=== PATIENT | female | born 1990 | race Caucasian/White ===

== ENCOUNTER 2017-02-28 02:22 | Observation (INO) | payer OTHER ==
[~2017-02-28] VITALS: Ht 170.2 cm; Wt 152.6 kg
[2017-02-28] VITALS (15 sets, daily range): BP systolic 105–144; BP diastolic 53–94; PULSE 61–84; RESP 16–23; O2SAT 93–100
--- NOTE | 2017-02-28 02:41 | ED.REPORT ---
HPI-Abd Pain F Under 40 Date of Service Feb 28, 2017 ED Provider: History of Present Illness: Healthy 26-year-old female presents with rather significant right upper quadrant pain rating to her back. Associated symptoms include fever. Pain woke her up from sleep tonight. She has never had anything like this in the past. Nursing Notes Stated Complaint: UPPER ABDOMEN/BACK PAIN Chief Complaint: Female Abdominal Pain Nursing Notes Reviewed: Yes Allergies: Uncoded Allergies: STEROIDS (Allergy, Intermediate, HIVES, 02/28/17) General Time Seen by MD: 02:41 Chief Complaint Abdominal pain Upper abdominal pain. Hx Obtained From: Patient Arrived By: Walk-in Sudden in Onset?: Yes Onset Occurred: Just prior to arrival Context of Onset: Other (woke her from sleep) Symptom Duration: Since onset Progression since Onset: Gradually worsening Location: : RUQ Quality: Painful Severity: Current: Moderate Severity: Maximum: Moderate Associated with: Reports: Fever Pertinent Negative: Pt denies other symptoms Pertinent Negative: Exacerbated by nothing, Relieved by nothing Recent Healthcare: Recent doctor visit (she gave to a term 4 weeks ago) Similar Sx Previous: No Risk Factors Ectopic Risk Stratification Risk factors reviewed CAD Risk Stratification No Amphetamine, No Cocaine, No Diabetes mellitus, No Family history, No Hyperlipidemia, No Hypertension, No Known CAD, No Smoking Risk factors reviewed TAD Risk Stratification No 1st degree relative, No Aortic valve disease Risk factors reviewed Past Medical History Past Medical History Denies: Coronary artery disease, Peptic ulcer disease Denies: Gallbladder disease, Renal failure Past Surgical History Denies: Cholecystectomy Smoking History Never Smoker Social History Alcohol Use: Denies alcohol use Drug Use: Denies drug use Ambulatory Status Independent Review of Systems Basic Review of Systems Eyes: Vision NL, No discharge ENT: Hearing NL, No pain, No pharyngeal pain Hematologic: No bleeding, No bruising Endocrine: No cold intolerance, No heat intolerance Skin: No bruising, No rash Allergy / Immune: No allergy Neurologic: NL mental status, No weakness, No numbness Psychiatric: Normal thought content Respiratory: Denies: Dyspnea on exertion GI: Reports: Abdominal pain, Denies: Diarrhea, Vomiting Female: Denies: Dysuria, Flank pain Musculoskeletal: Reports: Back pain Physical Exam Initial Vital Signs Vital Signs (First) Date Time Temp Pulse Resp B/P Pulse Ox O2 Delivery O2 Flow Rate FiO2 02/28/17 02:24 36.5 72 16 139/94 97 Room Air Head / Eyes: Atraumatic, Normocephalic ENT: Mucous membranes moist, Conjunctiva normal Neck: Full range of motion Lymphatic: No lymphadenopathy Extremities: Vascular intact, Neuro intact, No swelling, No tenderness Skin: Warm, Dry, No cyanosis Neurologic: Alert, Nonfocal Psychiatric: Mood/affect normal, Behavior normal, Normal thought content Abdomen: Soft Tenderness/Guarding/Rebound: Positive: Smith's sign positive, Tender RUQ... ( Moderate) Re-Eval/Medical Decision Med Decision/Clinical Course Subjective fever with right upper quadrant abdominal pain rating to the back. She is tender in the right upper quadrant. Cholecystitis is highest on the differential. We will check labs, urine and EKG. Care nurse of Dr. Juan Cameron at 3 AM. He will follow-up in the labs and make final disposition. Discharge & Departure Shift Change Sign-Out Patient Care Transferred: Yes Discussed Complaint(s): Yes Laboratory Evaluation: Ordered, not yet done Imaging Studies: Ordered, not yet done Response to Therapy: Improved Primary Impression: Right upper quadrant abdominal pain Isidoro Biggs DO Feb 28, 2017 02:41
[2017-02-28] MEDS ORDERED: 0.9% Sodium Chloride 1,000 ML IV ONE (02:46)
[2017-02-28] MEDS ORDERED: HYDROmorphone 0.5 mg/0.5 mL iSecure Syringe IVPUSH PRN (02:50)
[2017-02-28] MEDS ORDERED: Ondansetron 2 mg/mL 2 mL Inj IVPUSH PRN ×2 (02:50→13:30)
[2017-02-28 03:28] LABS: BASOPHILS % (AUTO) 0.2 % (0-3); EOSINOPHILS % (AUTO) 2.5 % (0-5); MONOCYTES % (AUTO) 8.2 % (4-12); Mean Corpuscular Hemoglobin 29.3 pg (27.0-35.0); Mean Corpuscular Volume 88.4 fL (81-100); NEUTROPHILS % (AUTO) 67.8 % (40-74); Platelet Count 250 bil/L (150-400)
[2017-02-28 03:44] LABS: APPEARANCE,URINE CLOUDY (CLEAR,HAZY); COLOR,URINE YELLOW (YELLOW)
[2017-02-28 03:45] LABS: OCCULT BLOOD,URINE NEGATIVE (NEGATIVE)
[2017-02-28] MEDS ORDERED: EPHEDrine/NS 5 mg/mL 5 mL Syringe ONE (08:15)
[2017-02-28] MEDS ORDERED: Rocuronium 10 mg/mL 5 mL Inj ONE (08:15)
[2017-02-28] MEDS ORDERED: Ondansetron 2 mg/mL 2 mL Inj ONE (08:15)
[2017-02-28] MEDS ORDERED: Glycopyrrolate 0.2 MG/ML 1mL Inj ONE (08:15)
[2017-02-28] MEDS ORDERED: Remifentanil 1 mg/3 mL Inj ONE (08:15)
[2017-02-28] MEDS ORDERED: Propofol 10,000 mCg/mL 20 mL Inj ONE (08:15)
[2017-02-28] MEDS ORDERED: Neostigmine 1 mg/mL 10 mL Inj ONE (08:15)
[2017-02-28] MEDS ORDERED: MetoCLOpramide 5 mg/mL 2 mL Inj ONE (08:15)
[2017-02-28] MEDS ORDERED: fentaNYL-PF 50 mCg/mL 2 mL Inj ONE (08:15)
[2017-02-28] MEDS ORDERED: RANI-426 PO (09:26)
[2017-02-28] MEDS ORDERED: ACYC400T2 PO (09:43)
[2017-02-28 10:21] LABS: BASOPHILS % (AUTO) 0.1 % (0-3); EOSINOPHILS % (AUTO) 2.2 % (0-5); MONOCYTES % (AUTO) 8.6 % (4-12); Mean Corpuscular Hemoglobin 29.5 pg (27.0-35.0); Mean Corpuscular Volume 87.8 fL (81-100); NEUTROPHILS % (AUTO) 63.3 % (40-74); Platelet Count 218 bil/L (150-400)
--- NOTE | 2017-02-28 10:41 | PCM.HPMED ---
Subjective Date of Service Feb 28, 2017 Primary Provider: Admitting Physician: Cherelle Mooney MD Primary Care Physician: Marlin Torres MD Attending Physician: Cherelle Mooney MD Chief Complaint: Abdominal pain History of Present Illness: 26-year-old female with GERD, cold sore on chronic anti-viral tx, recently gave , not on breast-feeding presented with acute onset of back pain around midnight last night. Patient had acute onset severe right upper quadrant pain about a week, which resolved with Tylenol and ibuprofen. Pain traveled to back at that time, lasted for 4hours. Last night, pain was similar to previous episodes, but only on her back. Patient took Tylenol and ibuprofen again however pain persisted, decided to come to the hospital. Patient denied having similar episodes prior to a week ago episode. ROS: no fever, chills, sick contact, travel, chest pain, cough, sputum, SOB, ED vitals were stable, afebrile. labs showed elevated lipase with normal bilirubin, leukocytosis. abd US, MRCP ordered. consulted per ED provider. During the interview, pt denied any abdominal pain, n, v. feels hungry. Review of Systems: Pertinent positives as noted in history of present illness. All other systems were reviewed and are negative Allergies Uncoded Allergies: STEROIDS (Allergy, Intermediate, HIVES, 02/28/17) Home Medications Ranitidine ?Acyclovir every day PMH As described above in history of present illness Surgical History Tonsillectomy Family History Father had stroke and hypertension Social History Hx Alcohol Use: No Hx Substance Use: No Hx Tobacco Use: No Smoking Status: Never Smoker Exam Vital Signs Vital Sign - Last Date Time Temp Pulse Resp B/P Pulse Ox O2 Delivery O2 Flow Rate FiO2 02/28/17 09:35 36.6 61 18 129/82 97 Room Air Intake and Output 02/27/17 02/27/17 02/28/17 Cumulative From/Thru 15:00 23:00 07:00 02/28/17 02:24 - 02/28/17 03:25 Intake Total 999 ml 999 ml Balance 999 ml 999 ml Intake IV Total 999 ml 999 ml Exam Young obese female NAD, comfortably laying down on the bed no JVD, MMM, no LAD RRR, nl s1, s2 no mrg CTAB, no w,c S,ND,NT,normoactive BS+ warm, no edema, pulses 2/2 Lab and Diagnostics Result Diagram: 02/28/17 1012 02/28/17 0320 Assessment & Plan 26-year-old female with GERD, cold sore on chronic anti-viral tx, recently gave , not on breast-feeding presented with acute onset of back pain around midnight last night. Hx suggested also recently episode of biliary colic. labs suggestive of acute pancreatitis. Acute, active RUQ pain, radiating to back, POA, likely due to acute pancreatitis given elevated lipase, hx. Exam and symptoms were unremarkable, suggested stones possibly may have passed already. We will continue supportive treatment for acute pancreatitis -will trend lipase, bilirubin. -LR 150cc/hr -awaits US abd, MRCP -appreciate consult for probable cholecystectomy -morphine iv prn for pain Chronic, stable GERD, continue ranitidine hx of cold sore, resume anti-viral once med rec done dispo:Patient will be admitted with inpatient status with expectation of inpatient therapy for more than 2 midnights diet:NPO for now dvt ppx:SCD Full code Time spent 65 minutes Cherelle Mooney MD Feb 28, 2017 10:41
[2017-02-28] MEDS: Acyclovir 400 mg Tablet PO SCH (11:00)
[2017-02-28] MEDS: 0.9% Sodium Chloride 1,000 ML IV SCH ×3 (11:08→23:15)
--- NOTE | 2017-02-28 12:02 | CONS ---
[address] [address] CONSULTATION REPORT PATIENT: ROSEMARIE GRIMALDO : 1990 MR#: [id number] ADMIT: 02/28/2017 JOB ID: [id number] DATE OF SERVICE: 02/28/2017 CHIEF COMPLAINT: A 26-year-old lady with gallstone pancreatitis seen in consultation at the request of Manoj Cameron MD. HISTORY OF PRESENT ILLNESS: The patient is a 26-year-old lady who had an episode of abdominal and severe back pain a week ago which got better with Tylenol and ibuprofen but last night it did not get better, prompting her to come to the emergency department. Before she could get any medication in the emergency department her pain indeed actually got better. She has had problems with reflux, taking ranitidine as needed before but she has not noted any abdominal complaints before. She is one month right now. OTHER MEDICAL PROBLEMS: 1. Morbid obesity. 2. Gastroesophageal reflux disease. 3. Herpes simplex. PRIOR OPERATIONS: Tonsillectomy. FAMILY HISTORY: Father had a stroke and hypertension. SOCIAL HISTORY: She does not smoke. She is here with her and 1-month-old daughter. REVIEW OF SYSTEMS: Twelve point review of systems negative other than the pertinent positives noted in the history of present illness and other medical problems. INVESTIGATIONS: WBC 6.9, hemoglobin 12.1, platelet count 218. Creatinine 0.69. Lipase at 3 a.m. 2155. AST 76, rest of the liver function studies normal. Ultrasound of the gallbladder. I reviewed it with Josef Wallace in radiology, and it showed gallstones with no evidence of gallbladder wall thickening or cholecystitis. PHYSICAL EXAMINATION: A 26-year-old lady, in no acute distress. BMI 52.7. Temperature 36.6, pulse 62, blood pressure 129/82, saturating 97% on room air. Eyes: Normal pupils, conjunctivae. Ears, nose, and throat: Normal external appearance. Respiratory: Normal effort, clear to auscultation. Cardiovascular: Regular rate and rhythm. Gastrointestinal: Abdomen soft, nontender. Neurologic: No gross deficits, alert, appropriate. Psych: Alert, appropriate. Skin: Normal. Musculoskeletal: Normal strength in extremities. Chest: Breast exam deferred. ASSESSMENT AND PLAN: Gallstone pancreatitis. Discussed the pathophysiology and treatment rationale for gallstone disease and gallstone pancreatitis, and recommended laparoscopic cholecystectomy and cholangiogram prior to discharge from this visit. Given her symptoms are completely resolved now, she would like to have the operation done as soon as possible. We will see what the lipase does on labs this morning which is pending right now and as long as it is trending down, it might be reasonable to proceed with the operation. Discussed the risks, benefits and alternatives, and the patient understands and wants to proceed.
--- NOTE | 2017-02-28 13:08 | NUR ---
TO OR Patient is saline locked. Consent form is signed. Patient transported to the OR via a hospital bed.
[2017-02-28] MEDS ORDERED: Lactated Ringer's 500 ML IV PRN (13:30)
[2017-02-28] MEDS ORDERED: HYDROmorphone 1 mg/mL Inj IVPUSH PRN (13:30)
[2017-02-28] MEDS ORDERED: fentaNYL-PF 50 mCg/mL 2 mL Inj IVPUSH PRN (13:30)
[2017-02-28] MEDS ORDERED: Dexamethasone 4 mg/mL Inj IVPUSH PRN (13:30)
[2017-02-28] MEDS ORDERED: Lactated Ringer's 1,000 ML IV SCH (13:30)
[2017-02-28] MEDS ORDERED: MetoCLOpramide 5 mg/mL 2 mL Inj IVPUSH PRN (13:30)
[2017-02-28] MEDS ORDERED: EPHEDrine Sulfate 50 mg/mL Inj IVPUSH PRN (13:30)
[2017-02-28] MEDS ORDERED: Phenylephrine 10,000 mCg/mL Inj IVPUSH PRN (13:30)
--- NOTE | 2017-02-28 13:30 | PCM.HPANE ---
Patient Data Surgeon Admitting Provider:Cherelle Mooney MD Attending Provider:Cherelle Mooney MD Primary Care Physician:Marlin Torres MD Other Provider: Reason for Visit Gallstones/Pancreatitis GALLSTONES/PANCREATITIS Ht/WT & BMI Height (Feet): 5 Height (Inches): 7.00 Weight (Kilograms): 152.600 Body Mass Index 52.80 Allergies Uncoded Allergies: STEROIDS (Allergy, Intermediate, HIVES, 02/28/17) Past Anesthesia History Anesthesia History: Denies:: Anesthesia Reactions Diabetes History Hx Diabetes?: No MRSA MRSA: No Medications Reported Medications Acyclovir 400 Mg [id number] Mg PO DAILY Ref 0 02/28/17 Ranitidine 75 Mg [id number] Mg PO DAILY Ref 0 02/28/17 History History of ENT Problems?: No HEENT History: Denies:: Abnormal Airway Cataracts Difficult Intubation Dysphagia Glaucoma Hearing Problem Sinus Problem TMJ Denture Type: None Teeth Condition: Within Normal Limits Hx of Heart Problems?: No Cardiovascular History: Denies:: Congestive Heart Failure Hypertension Hx of Respiratory Problem?: No Respiratory History: Denies:: Tuberculosis Hx Neurologic Problems?: No Hx of GI Problems?: Yes Hx of Problems?: No Female Hx: Denies:: Currently (GAVE 1 MONTH AGO) Endometriosis Pelvic Inflammatory Problems with Breasts? Hx Musculoskeletal Problems?: No Hx of Psycho/Social Problems?: No Hx Surgeries?: Yes (TONSILLECTOMY) Hx Any Other Health Problems?: No Other History: Denies:: Hospitalization History Blood Transfusions: Positive for:: Accept Blood Products? Denies:: Blood Transfusions Hx Diabetes: No Hx Alcohol Use: NoHx Substance Use: No Smoking Status: Never Smoker Have You Smoked inLast 12 mo: No Stop/Bang Treated for Sleep Apnea?: No (? PAKO PER PT. ) Do You Have a CPAP Machine?: No S-Snoring: Do You Snore Loudly: Yes T-Tired: feel tired, fatigued: No O-Obsered: Observed not breath: Yes P-Blood Pressure: treated: No B- Body Mass Index > 35 kg/m2: Yes A- Age over 50: No N- Neck Large Circumference: No G- Gender Male: No PAKO Total Score: 4 PAKO Risk Assessment: High Risk, =/>3 Yes PAKO Category 4 OutPt Procedure: Yes Risk Assessment Category Category 1A: Patient has history of documented sleep apnea, and HAS NOT received any narcotic, sedative or anesthesia administration during this stay. Category 1B: Patient has history of documented sleep apnea, and HAS received any narcotic , sedative or anesthesia administration during this stay Category 2: Patient has SUSPECTED Obstructive Sleep Apnea, and HAS received any narcotic , sedative or anesthesia administration during this stay. Category 3: Patient has SUSPECTED Obstructive Sleep Apnea and HAS NOT received narcotic, sedative or anesthesia administration during this stay. Category 4: Outpatient in Procedural Areas with known sleep apnea or who screen positive for High Risk via the STOP/BANG questionnaire. Exam Exam Vital Signs Vital Signs Date Time Temp Pulse Resp B/P Pulse Ox O2 Delivery O2 Flow Rate FiO2 02/28/17 10:36 62 02/28/17 09:35 36.6 61 18 129/82 97 Room Air 02/28/17 07:13 69 16 144/93 98 Room Air 02/28/17 05:08 63 96 Room Air General Appearance: Alert HEENT/AIRWAY: MP 2, Neck Movement (FROM, 3 FB) Lungs: Clear to Auscultation Heart: Regular Rate/Rhythm Meds/Labs/Diagnostics Admission Meds Current Medications Sodium Chloride (Normal Saline) 1,000 ml @ 0 mls/hr Q0M ONCE IV Last administered on 02/28/17 03:25; Start 02/28/17 at 02:46; Stop 02/28/17 at 02:48; Status DC Ketorolac Tromethamine 30 mg 30 mg ONCE ONCE IVPUSH Last administered on 05:07; Start 02/28/17 at 02:50; Stop 02/28/17 at 02:51; Status DC Sodium Chloride (Normal Saline) 1,000 ml @ 150 mls/hr Q6H40M IV Last administered on 02/28/17 11:08; Start 02/28/17 at 09:55 Labs Test 02/28/17 03:20 02/28/17 03:30 02/28/17 10:12 Hold [place] Top Tube Received (Received) Urine Color Yellow (YELLOW) Urine Appearance Cloudy (CLEAR,HAZY) Urine pH 7.0 (5.0-8.0) Urine Specific [place] 1.025 (1.003-1.035) Urine Protein Negativemg/dL (NEG,TRACE) Urine Glucose (UA) Negativemg/dL (NEGATIVE) Urine Ketones Negativemg/dL (NEGATIVE) Urine Occult Blood Negative (NEGATIVE) Urine Nitrite Negative (NEGATIVE) Urine Bilirubin Negative (NEGATIVE) Urine Urobilinogen 1.0mg/dL (NORMAL) Urine Leukocyte Esterase Negative (NEGATIVE) Urine RBC 0-2/hpf (0-2) Urine WBC 6-10/hpf (0-5) Urine Epithelial Cells Many/hpf (NONE-MOD) Urine Crystals None seen (NONE SEEN) Urine Bacteria Moderate/hpf (NONE-FEW) Urine Hyaline Casts None/lpf (NONE) Urine Granular Casts None seen (NONE SEEN) Urine Waxy Casts None seen (NONE SEEN) Urine Red Blood Cell Casts None seen (NONE SEEN) Urine White Blood Cell Casts None seen (NONE SEEN) Urine Mucus Present (None Seen) Urine Trichomonas None seen (NONE SEEN) Urine Yeast None (NONE SEEN) Urinalysis Comment None Urine Culture Reflexed Indicated White Blood Count 6.9th/mm3 (3.8-10.1) Red Blood Count 4.10mil/mm3 (3.90-5.20) Hemoglobin 12.1g/dL (12.0-15.6) Hematocrit 36.0% (35.0-46.0) Mean Corpuscular Volume 87.8fL (81-100) Mean Corpuscular Hemoglobin 29.5pg (27.0-35.0) Mean Corpuscular Hemoglobin Concent 33.6% (32.0-37.0) Red Cell Distribution Width 12.5% (12.3-15.4) Platelet Count 218bil/L (150-400) Neutrophils (%) (Auto) 63.3% (40-74) Lymphocytes (%) (Auto) 25.7% (14-46) Monocytes (%) (Auto) 8.6% (4-12) Eosinophils (%) (Auto) 2.2% (0-5) Basophils (%) (Auto) 0.1% (0-3) Sodium Level 141mEq/L (134-144) Potassium Level 4.3mEq/L (3.5-5.2) Chloride Level 105mEq/L (97-108) Carbon Dioxide Level 20mmol/L (18-29) Blood Urea Nitrogen 10mg/dL (6-20) Creatinine 0.53mg/dL (0.57-1.00) Estimat Glomerular Filtration Rate 200mL/min (>59) Glucose Level 102mg/dL (60-99) Calcium Level 8.6mg/dL (8.5-10.1) Total Bilirubin 0.2mg/dL (0.0-1.2) Aspartate Amino Transf (AST/SGOT) 125U/L (0-50) Alanine Aminotransferase (ALT/SGPT) 58U/L (0-32) Alkaline Phosphatase 117U/L (25-150) Total Protein 6.6g/dL (6.4-8.4) Albumin 3.8g/dL (3.4-5.0) Lipase 1877U/L (13-60) Plan Impression Patient chart reviewed, patient interviewed and anesthestic plan with risks, benefits, and alternatives discussed, and informed consent obtained. NPO per Anesth. Guidelines: Yes ASA Physical Status: ASA3 Severe Disease Anesthetic Plan: GA Bene/Risks/Altern/Consents: Yes HP Complete Prior to Induction: Yes Other Discussed GETA. All questions were answered and she agrees to proceed. Flakito Shah MD Feb 28, 2017 12:44
--- NOTE | 2017-02-28 13:39 | DRSVH ---
PROCEDURE: US ABDOMEN INDICATIONS: ruq pain radiating to back, fever TECHNIQUE: Real-time scanning was performed of the abdominal and retroperitoneal organs, with image documentatio n. COMPARISON: None. FINDINGS: Liver length: 19.06 cm Gallbladder Wall Thickness: 2.70 mm CBD: 6.60 mm Spleen length: 14.77 cm Right kidney length: 12.66 cm Left kidney length: 13.29 cm Aorta(Proximal): 1.86 cm Aorta(Mid): 1.53 cm Aorta(Distal): 1.46 cm RCIA: 9.10 mm LCIA: 8.70 mm Liver: Liver is diffusely increased in echogenicity. No focal hepatic abnormalities identified. No rmal hepatic size. Gallbladder: Multiple gallstones present. No gallbladder wall thickening or pericholecystic fluid. Negative sonographic Smith sign. Biliary ducts: Intrahepatic bile ducts are non-dilated. Extrahepatic bile duct caliber is normal. Normal is 6-7 mm or less in diameter, or 10 mm or less post-cholecystectomy. Pancreas: Visualized portions of the pancreas are sonographically normal. Spleen: Spleen is enlarged in size and homogeneous in echotexture. Kidneys: Kidneys are normal in size and echotexture. No hydronephrosis or nephrolithiasis. No tommy d masses. Aorta: Visualized aorta is normal in caliber at less than 3 cm. Iliacs: Proximal common iliac arteries are normal in caliber at less than 2.5 cm. IVC: Intrahepatic inferior vena cava is patent. Miscellaneous: No free abdominal fluid. IMPRESSION: 1. Increased hepatic echogenicity noted likely related to fatty infiltration of the liver but other s ources of hepatocellular disease cannot be excluded. Recommend clinical correlation. 2. Cholelithiasis without evidence for cholecystitis. 3. Mild sonographic splenomegaly. Dictated by: Josef Wallace [facility] Interpreted: Daniel Cunha MD on 02/28/2017 at 9:22 Approved by: Daneil Cunha M.D. on 02/28/2017 at 13:37
[2017-02-28] MEDS ORDERED: Lactated Ringer's 1,000 ML IV ONE ×2 (13:45→16:55)
[2017-02-28] MEDS ORDERED: Bupivacaine-MPF 0.5% 30 mL Inj INJ ONE (14:18)
--- NOTE | 2017-02-28 15:08 | NUR ---
pt is off the floor to the OR Addendum: 02/28/17 at 1509 by RASHEEDA JACOBO CNA Amended: Links added.
[2017-02-28 16:59] LABS: Lipase 1849 U/L (13-60)
--- NOTE | 2017-02-28 17:17 | DRSVH ---
PROCEDURE: X-RAY OPERATIVE CHOLANGIOGRAM ([id number]) INDICATIONS: CHOLIANGIOGRAM COMPARISON: None. FINDINGS: Biliary ducts: The surgeon injected contrast into the biliary ducts after cannulation of the cystic duct stump. Visualized intra- and extrahepatic bile ducts are normal in caliber, without strictures. Several small intraluminal filling defects seen within the distal common bile duct proximal to the ampulla. No evidence for iatrogenic ductal injury. Duodenum: Contrast flows promptly through the sphincter of Oddi into the duodenum, which appears nor mal in caliber. IMPRESSION: Several small distal common bile duct rounded intraluminal filling defects which may be r elated to gas bubbles but retained stones cannot be excluded. Recommend correlation with real-time e xamination. Dictated by: Josef CHE Interpreted: Daniel Cunha MD on 02/28/2017 at 15:56 Approved by: Daniel Cunha M.D. on 02/28/2017 at 17:14
--- NOTE | 2017-02-28 17:25 | PCM.ANEP1 ---
Post Anesthesia PACU Phase 1 Assessment Vital Signs Vital Signs Date Time Temp Pulse Resp B/P Pulse Ox O2 Delivery O2 Flow Rate FiO2 02/28/17 16:55 36.8 65 21 117/64 95 Room Air 02/28/17 16:50 70 20 108/56 96 Room Air 02/28/17 16:45 71 20 116/65 96 Room Air 02/28/17 16:40 74 19 105/65 96 Room Air 02/28/17 16:35 71 20 113/70 96 Room Air 02/28/17 16:30 75 21 113/53 100 Simple Mask 7 02/28/17 16:25 37.1 84 23 110/55 100 Simple Mask 7 02/28/17 10:36 62 02/28/17 09:35 36.6 61 18 129/82 97 Room Air Anesthetic Administered: GA Level of Alertness: Awake, talking RAYMOND's with Equal Strength: Yes Pain: Yes Pain Scale Score: 4 Nausea or Vomiting: No CV Function & Hydration Stable: Yes Airway Device: Oxygen Delivery: Simple Mask Lungs: Clear to Auscultation Dermatome Level: Full Sensation PACU Phase 2 Assessment Complications: No Follow up Care: N/A Patient Instructions Provided: N/A Flakito Shah MD Feb 28, 2017 17:25
[2017-02-28 18:54] LABS: Bilirubin, Direct 0.3 mg/dL (0.0-0.3)
--- NOTE | 2017-02-28 18:55 | OP ---
[address] [address] OPERATIVE REPORT PATIENT: ROSEMARIE GRIMALDO : 1990 MR#: [id number] ADMIT: 02/28/2017 JOB ID: [id number] DATE OF SURGERY: 02/28/2017 PREOPERATIVE DIAGNOSIS(ES): Gallstone pancreatitis. POSTOPERATIVE DIAGNOSIS(ES): Gallstone pancreatitis with choledocholithiasis. SURGEON: Elvia Singleton MD INSURANCE CLAIMS SPECIALIST: Yemi Mac MD and Daniel Mehta PA-C. PROCEDURE PERFORMED: Laparoscopic cholecystectomy with intraoperative cholangiogram. COMPLICATIONS: None. CONDITION OF THE PATIENT: Stable. INDICATIONS: The patient is a 26-year-old, one month lady who has had severe abdominal pain and morbid obesity and was diagnosed with gallstone pancreatitis based on the severe abdominal pain and ultrasound showing gallstones. By the time I saw her this morning her pain has resolved and repeat of numbers showed lipase trending down. After discussing the risks, benefits, and alternatives, she was brought to the operating room for laparoscopic cholecystectomy with cholangiogram. PROCEDURE DETAILS: She was placed in supine position and underwent the smooth induction of general anesthesia. The abdomen was prepped and draped in the usual sterile fashion. A surgical time-out was undertaken using safety checklist and all were in agreement. We began by making a supraumbilical incision and entered the abdomen using the open Karel technique and the Optiview trocar. After obtaining pneumoperitoneum, we up-sized to a 12 mm port. We placed her in reverse Trendelenburg position and right side up, and placed three 5 mm ports in the right side of the abdomen and epigastrium. I then retracted the gallbladder cephalad and to the right and dissected the triangle of Calot anteriorly and posteriorly and controlled the posterior and anterior branches of the cystic artery between clips and divided them. We then dissected the cystic duct and clipped it on the specimen side and obtained a cholangiogram. On the cholangiogram we were able to get contrast to flow into the duodenum with normal biliary anatomy but did notice some filling defects in the distal common bile duct. At that point we gave her IV glucagon and put some intraductal lidocaine and when we got repeat cholangiogram we were not able to see the filling defects anymore. After that we proceeded to clip the duct on the patient's side doubly, divided it, and dissected the gallbladder off the liver bed. I then suctioned all fluid free from the right upper quadrant, placed the gallbladder in an EndoCatch bag, and removed it through the umbilical port site. The umbilical port fascia was closed with [id number] 0 PDS suture. The skin was reapproximated with 4-0 Monocryl. Steri-Strips and a sterile dressing were applied. The patient was recovered from anesthesia and was taken to the recovery room in stable condition.
--- NOTE | 2017-02-28 19:14 | NUR ---
POST-OP Received patient form PACU via a hospital bed. IVF ongoing. Patient denies pain/nausea/SOB. Band aid dressing X 4 in her abdomen is CDI. Tele placed back on. Oriented to room and call light. STAT LABS ORDERED BY DR. SOLIS. PENDING AT THIS TIME. ENDORSED TO NEXT SHIFT TO NOTIFY
[2017-02-28] MEDS: HYDROcodone-APAP 5-325 mg Tablet PO PRN (20:41)
[2017-03-01] MEDS: HYDROcodone-APAP 5-325 mg Tablet PO PRN ×5 (02:07→18:24)
--- NOTE | 2017-03-01 04:54 | NUR ---
Pain/diet Pt is alert, oriented and able to make needs known. No decreased in LOC noted. Pleasant and cooperative with care. Band Aid dressing x4 on abdomen lap sites is C/D/I. Medicated for abdominal pain with [place] 5/325mg one tab x2 with good relief. c/o back pain and sat up in arm chair to release tension, also ice applied on back with relief reported. Ambulate to bathroom for toileting with steady gait. Diet advanced to general low fat per orders and pt is tolerating it well. Will continue to monitor.
[2017-03-01 05:00] VITALS: BP 122/81; PULSE 69; RESP 16; O2SAT 94
[2017-03-01] MEDS: 0.9% Sodium Chloride 1,000 ML IV SCH ×3 (05:55→19:15)
[2017-03-01 06:07] VITALS: PULSE 73
[2017-03-01 06:25] LABS: BASOPHILS % (AUTO) 0.1 % (0-3); EOSINOPHILS % (AUTO) 0.5 % (0-5); MONOCYTES % (AUTO) 6.7 % (4-12); Mean Corpuscular Hemoglobin 29.6 pg (27.0-35.0); Mean Corpuscular Volume 89.2 fL (81-100); NEUTROPHILS % (AUTO) 75.7 % (40-74); Platelet Count 223 bil/L (150-400)
[2017-03-01 06:49] LABS: Magnesium 1.8 mg/dL (1.6-2.6)
--- NOTE | 2017-03-01 07:22 | PCM.DISURG ---
Surgical Discharge Instruction Date of Service Mar 01, 2017 Dates of Hospitalization Date of Hospital Admission Feb 28, 2017 at 08:14 Providers Admitting Physician: Cherelle Mooney MD Primary Care Physician: Marlin Torres MD Attending Physician: Cherelle Mooney MD Diet Discharge Diet: No restrictions Activity Discharge Activity-General: Try not to overdue, Activity as pain allows, No driving while taking narcotic Dressing and Incisional Care Dressing Care: Allow Steri Stripes to fall off, Remove outer dressing after 24 hrs Hygiene: May shower after (24 hours), DO NOT soak incision under water, NO bathtub, hot tub or whirlpool Follow Up Plan Follow Up Plan Follow up in the surgery clinic in the next 2-4 weeks. Call at any time with questions or concerns. Call your provider for: Fever, Chills, Increasing abdominal pain, Nausea, Vomiting, Wound redness, Discharge @ incision, pus discharge Yemi Mac MD Mar 01, 2017 07:22
[2017-03-01] MEDS: Acyclovir 400 mg Tablet PO SCH (07:58)
[2017-03-01 08:39] VITALS: BP 124/84; PULSE 86; RESP 19; O2SAT 97
[2017-03-01 09:58] VITALS: PULSE 56
--- NOTE | 2017-03-01 10:09 | PCM.PNMED ---
Subjective Date of Service Mar 01, 2017 Subjective pt remained afebrile after surgery, however, lab trends worse this AM still has poor appetite, denied n/v Exam Vital Signs Vital Sign - Last Date Time Temp Pulse Resp B/P Pulse Ox O2 Delivery O2 Flow Rate FiO2 03/01/17 06:07 73 03/01/17 05:00 36.8 16 122/81 94 Room Air 02/28/17 16:30 7 Intake and Output 02/28/17 02/28/17 03/01/17 Cumulative From/Thru 15:00 23:00 07:00 02/28/17 02:24 - 03/01/17 06:26 Intake Total 1000 ml 200 ml 2613 ml 4812 ml Output Total 2 ml 300 ml 950 ml 1252 ml Balance 998 ml -100 ml 1663 ml 3560 ml Intake Oral 0 ml 800 ml 800 ml IV Total 1000 ml 200 ml 1813 ml 4012 ml Output Urine Total 300 ml 950 ml 1250 ml Estimated Blood Loss 2 ml 2 ml # Bowel Movements 0 0 Exam Young obese female NAD, comfortably laying down on the bed no JVD, MMM, no LAD RRR, nl s1, s2 no mrg CTAB, no w,c S,ND,mild RUQ/LUQ td,normoactive BS+ warm, no edema, pulses 2/2 IVs and Medications Medications Reviewed: Medications were reviewed in detail Lab and Diagnostics Result Diagram: 03/01/17 0600 03/01/17 0600 Assessment & Plan 26-year-old female with GERD, cold sore on chronic anti-viral tx, recently gave , not on breast-feeding presented with acute onset of back pain around midnight last night. Hx suggested also recently episode of biliary colic. labs suggestive of acute pancreatitis. Acute, active RUQ pain, radiating to back, POA, due to acute pancreatitis given elevated lipase, biliary colic. abd US showed cholelithiasis, pt underwent Lap cholecystectomy by on 02/28, intra-op findings suggested multiple small biliary stones. Patient tolerated surgery well. -today lab trends-lipase, bilirubin, LFTs worse, unclear there are remaining stones, -appreciate follow up, possible CT or MRCP -continue LR 150cc/hr -morphine iv prn for pain Chronic, stable GERD, continue ranitidine hx of cold sore, resume anti-viral once med rec done dispo:likely 1-2more days, diet:general diet as tolerated dvt ppx:SCD Full code VTE Mechanical Devices: Intermittant Pneumatic CD Time spent 35min Cherelle Mooney MD Mar 01, 2017 08:35
--- NOTE | 2017-03-01 12:17 | NUR ---
MRI Patient off unit to MRI via wheelchair. IV saline locked. Addendum: 03/01/17 at 1321 by CAROLIN DOMINGO RN Back from MRI at 1240. Tele in [address], IV fluids infusing. Patient reports pain from movement-IV pain medication given.
[2017-03-01 14:00] VITALS: BP 130/77; PULSE 78; RESP 20; O2SAT 97
--- NOTE | 2017-03-01 14:46 | DRSVH ---
PROCEDURE: MR ABDOMEN MRCP INDICATIONS: Gallstone pancreatitis s/p lap stephanie TECHNIQUE: Coronal HASTE through the abdomen, axial 2-D FLASH in- and [id number], and breath-hold T2 FSE with fat saturation through the biliary system and pancreas. Oblique coronal and axial thin-slice HASTE, radial thick-slab HASTE centered on the extrahepatic bile ducts. Intravenous secretin: Not requested. COMPARISON: None. FINDINGS: Image quality: Excellent. Pancreas and biliary system: Intra- and extra-hepatic biliary ducts are non dilated. Pancreas is no rmal in morphology, without adjacent soft tissue edema. Pancreatic duct is normal in caliber, withou t developmental anomalies. Gallbladder has been removed. The original ultrasound prior to the gallbladder shows numerous very small stones/gravel in the gallb ladder. The intraoperative cholangiogram suggests small filling defects distally versus air bubbles. The axial images of the common bile duct distally very suspicious for filling defects in addition. In view of the known small size stones, and the intraoperative cholangiogram images this is good eviden ce of retained small stones in the distal common bile duct. Other solid organs: Liver and spleen are normal in size. No adrenal nodules. Both kidneys are norm al in size, without hydronephrosis. Nodes and vessels: No retroperitoneal or mesenteric adenopathy by size criteria. Aorta and inferior vena cava are normal in size. Bowel and peritoneum: Unenhanced bowel loops are normal in caliber. No free fluid. Lung bases: No basal pleural effusions. Heart size is normal. Bones and soft tissues: No ventral hernias. Bone marrow is of normal overall signal. IMPRESSION: Highly suspicious imaging findings for retained small stones or gravel in the distal comm on bile duct. Dictated by: Gilmar Chavez M.D. on 03/01/2017 at 14:39 Approved by: Gilmar Chavez M.D. on 03/01/2017 at 14:45
--- NOTE | 2017-03-01 15:39 | NUR ---
Social Work: Initial Assessment Data: Pt is a 26 y/o female admitted for gallstone/pancreatitis. Pt's PCP is Dr Torres, pt's insurance is [employer]. EMR reviewed. Readmit score is 0, low. PRODUCTION QUALITY ANALYST met with pt and significant other at bedside, role explained. Pt states she lives on [address] with her s/o, father, step-mom, and her baby. It is a single story home where she uses no DME, has no hx of HH or SNF, drives, does not have LTC or VA benefits. Pt plans to get a ride home with her s/o when ready for d/c. No d/c planning needs anticipated at this time. PRODUCTION QUALITY ANALYST will continue to follow if needs arise. PRODUCTION QUALITY ANALYST contact info and plan on board. Assessment: Pt who is independent at baseline, currently capable of self care. Plan: Pt will d/c home via POV when medically stable. No d/c planning needs anticipated at this time. PRODUCTION QUALITY ANALYST will continue to follow if needs arise. PACHECO Hudson Addendum: 03/01/17 at 1543 by ASHISH PIZANO Amended: Links added.
--- NOTE | 2017-03-01 17:46 | PCM.PNSURG ---
Subjective Date of Service: Mar 01, 2017 Visit Information: Reason for Visit Gallstones/Pancreatitis Lap Jonna with Cholangiogram 02/28/2017 Post-Op Day # 1 Date of Admission: Feb 28, 2017 at 08:14 Hospital Day # 2 Subjective: Feels well, Tolerating food Objective Vital Sign- Last 8 Hours Date Time Temp Pulse Resp B/P Pulse Ox O2 Delivery O2 Flow Rate FiO2 03/01/17 14:00 36.2 78 20 130/77 97 Room Air 03/01/17 09:58 56 Intake and Output- Last 8 Hour 03/01/17 Cumulative From/Thru 07:00 02/28/17 02:24 - 03/01/17 06:26 Intake Total 2613 ml 4812 ml Output Total 950 ml 1252 ml Balance 1663 ml 3560 ml Intake Oral 800 ml 800 ml IV Total 1813 ml 4012 ml Output Urine Total 950 ml 1250 ml Estimated Blood Loss 2 ml # Bowel Movements 0 0 Abdomen: Soft, Appropriately tender Result Diagram: 03/01/17 0600 03/01/17 0600 Diagnostics: MRCP and Cholangiogram suspicious for filling defects in lower CBD Assessment & Plan Impression Doing well Problems: Plan Repeat labs tomorrow If clinical improvement, will plan outpatient f/u with GI next week If any worsening, will transfer to another hospital for ERCP Elvia Singleton MD Mar 01, 2017 17:46
[2017-03-01 19:40] VITALS: BP 146/91; PULSE 80; RESP 17; O2SAT 97
[2017-03-02] MEDS: 0.9% Sodium Chloride 1,000 ML IV SCH ×2 (01:05→08:35)
[2017-03-02] MEDS: HYDROcodone-APAP 5-325 mg Tablet PO PRN ×3 (01:32→13:26)
--- NOTE | 2017-03-02 03:01 | NUR ---
Activity Patient recently requested pain medication states pain 10/30, PRN medications effective, otherwise stated comfortable throughout shift. Denies Any further discomforts, bed in low position, call light within reach, intentional rounding. Care continues.
[2017-03-02 04:40] VITALS: BP 137/90; PULSE 62; RESP 17; O2SAT 97
[2017-03-02 05:04] VITALS: PULSE 61
[2017-03-02 06:38] LABS: BASOPHILS % (AUTO) 0.1 % (0-3); EOSINOPHILS % (AUTO) 4.5 % (0-5); MONOCYTES % (AUTO) 6.5 % (4-12); Mean Corpuscular Hemoglobin 29.1 pg (27.0-35.0); Mean Corpuscular Volume 90.9 fL (81-100); NEUTROPHILS % (AUTO) 51.6 % (40-74); Platelet Count 197 bil/L (150-400)
[2017-03-02 08:36] VITALS: PULSE 68
[2017-03-02] MEDS: Acyclovir 400 mg Tablet PO SCH (08:39)
--- NOTE | 2017-03-02 10:05 | PCM.DIMED ---
Discharge Instructions Date of Service Mar 02, 2017 Dates of Hospitalization Feb 28, 2017 at 08:14 Discharge Diagnosis Discharge Diagnosis Acute gallstone pancreatitis Choledocholithiasis Diet Discharge Diet: No restrictions Activity Discharge Activity: No restrictions Call your provider Call your provider for: Fever or Chills, Vomitting, Other (abdominal pain) Patient Instructions Patient Instructions You were hospitalized because of abdominal pain, due to inflamed gallbladder and biliary stones. You were treated surgically. Your gallbladder was removed. Likely the you had small stones in her biliary duct which blocked your pancreas and caused inflammation which was all resolved at the time of discharge. Please follow-up with new primary doctor, we will arrange appointment with primary doctor at [place]. You will also recommended to follow-up with GI doctor for follow up in 2-4weeks. Follow-up plan Follow up in the surgery clinic in the next 2-4 weeks. Call at any time with questions or concerns. Follow-up Provider: Uriel Alejandro MD Follow-up with PCP in: 2 weeks Provider: [facility] Residency Clinic Follow-up in: 2 weeks Cherelle Mooney MD Mar 02, 2017 10:05
--- NOTE | 2017-03-02 10:27 | PCM.PNSURG ---
Subjective Date of Service: Mar 02, 2017 Visit Information: Reason for Visit Gallstones/Pancreatitis Lap Jonna with Cholangiogram 02/28/2017 Post-Op Day # 2 Date of Admission: Feb 28, 2017 at 08:14 Hospital Day # 3 Subjective: Feels well, tolerating diet Objective Vital Sign- Last 8 Hours Date Time Temp Pulse Resp B/P Pulse Ox O2 Delivery O2 Flow Rate FiO2 03/02/17 08:36 68 03/02/17 05:04 61 03/02/17 04:40 36.8 62 17 137/90 97 Room Air Intake and Output- Last 8 Hour 03/02/17 Cumulative From/Thru 07:00 02/28/17 02:24 - 03/02/17 05:26 Intake Total 2864 ml 75577 ml Output Total 1100 ml 3952 ml Balance 1764 ml 7024 ml Intake Oral 1286 ml 3722 ml IV Total 1578 ml 7254 ml Output Urine Total 1100 ml 3950 ml Estimated Blood Loss 2 ml # Bowel Movements 0 0 Abdomen: Soft, Non-tender Result Diagram: 03/02/17 0605 03/02/17 0605 Lab & Micro Results: Amylase & Lipase Normal Assessment & Plan Impression Doing well Problems: Plan Home on Low fat diet D/W Dr. Alejandro Follow up with him in the next week or 2 See me back as needed F/U Surgery PA in 3 weeks. Avoid straining and heavy lifting for 3 weeks Elvia Singleton MD Mar 02, 2017 10:27
[2017-03-02 10:50] VITALS: BP 118/79; PULSE 70; RESP 18; O2SAT 97
--- NOTE | 2017-03-02 11:27 | NUR ---
Social Work: Readiness for Discharge/Multidisciplinary Rounds D: EMR reviewed. Pt is on day 2 of hospitalization. Pt discussed in multidisciplinary rounds - per MD, pt is medically stable for discharge home today - no SW needs identified - no MD orders received. SW discussed pt's capacity for self-care after discharge, no concerns identified. A: Pt who is independent at baseline, currently capable of self care. P: Pt will discharge home via POV today. No discharge planning needs identified. No MD orders received. SW will continue to follow for potential needs until time of discharge. PACHECO Atwood
--- NOTE | 2017-03-02 12:13 | PATH ---
SURGICAL PATHOLOGY Attending Physician:Elvia Singleton MD CASE STATUS: Signed Out PATIENT NAME: ROSEMARIE GRIMALDO PID: [id number] : 1990 DATE COLLECTED:02/28/2017 23:21 SPECIMEN: Gallbladder CLINICAL HISTORY: GALLSTONES 1). GALLBLADDER FINAL DIAGNOSIS: 1.GALLBLADDER, EXCISION: CHOLELITHIASIS WITH MILD CHRONIC CHOLECYSTITIS. NEGATIVE FOR ATYPIA AND MALIGNANCY. ICD10 K80.10 GROSS DESCRIPTION: Received in formalin, labeled with the patient' s name and "gallbladder", is an intact gallbladder measuring 12.5 x 4.5 x 3.5 cm. The serosal surface is buck and smooth. The specimen is opened and contains a large amount of green, viscous bile. There are multiple buck-yellow, granular gallstones ranging in size from 0.1 x 0.1 x 0.1 cm to 0.3 x 0.3 x 0.2 cm. The wall is thin and palpable and measures up to 0.2 cm in thickness with a velvety green inner lining. No mass or lesions are identified. Clerk Guide sections are taken from the cystic duct as well as the proximal, middle, and distal body of the gallbladder and are submitted in one cassette. [id number]) MICRO DESCRIPTION: See diagnosis. ICD-9 CODES: CPT CODES: 1: 42908 Electronically Signed Out Brant Radford MD, PhD [facility] Pathology [facility], [place] [address] Technical component performed at [facility], [address] [place] [address] Ave[address], [place], [address]
[2017-03-02] MEDS ORDERED: OXYC1TAB24 PO ×3 (12:53→14:13)
--- NOTE | 2017-03-02 13:15 | PCM.DC.MED ---
Discharge Summary Date of Service Mar 02, 2017 Dates of Hospitalization Date of Hospital Admission Feb 28, 2017 at 08:14 Date of Discharge: Mar 02, 2017 Providers: Admitting Physician: Cherelle Collier MD Primary Care Physician: Marlin Torres MD Attending Physician: Cherelle Collier MD Diagnosis at Time of Discharge Diagnosis at Time of Discharge Acute gallstone pancreatitis Choledocholithiasis Consultations Surgery Procedures XRay, CTs & MRIs PROCEDURE: MR ABDOMEN MRCP INDICATIONS: Gallstone pancreatitis s/p lap stephanie TECHNIQUE: Coronal HASTE through the abdomen, axial 2-D FLASH in- and [id number], and breath-hold T2 FSE with fat saturation through the biliary system and pancreas. Oblique coronal and axial thin-slice HASTE, radial thick-slab HASTE centered on the extrahepatic bile ducts. Intravenous secretin: Not requested. COMPARISON: None. FINDINGS: Image quality: Excellent. Pancreas and biliary system: Intra- and extra-hepatic biliary ducts are non dilated. Pancreas is normal in morphology, without adjacent soft tissue edema. Pancreatic duct is normal in caliber, without developmental anomalies. Gallbladder has been removed. The original ultrasound prior to the gallbladder shows numerous very small stones/gravel in the gallbladder. The intraoperative cholangiogram suggests small filling defects distally versus air bubbles. The axial images of the common bile duct distally very suspicious for filling defects in addition. In view of the known small size stones, and the intraoperative cholangiogram images this is good evidence of retained small stones in the distal common bile duct. Other solid organs: Liver and spleen are normal in size. No adrenal nodules. Both kidneys are normal in size, without hydronephrosis. Nodes and vessels: No retroperitoneal or mesenteric adenopathy by size criteria. Aorta and inferior vena cava are normal in size. Bowel and peritoneum: Unenhanced bowel loops are normal in caliber. No free fluid. Lung bases: No basal pleural effusions. Heart size is normal. Bones and soft tissues: No ventral hernias. Bone marrow is of normal overall signal. IMPRESSION: Highly suspicious imaging findings for retained small stones or gravel in the distal common bile duct. Dictated by: Gilmar Chavez M.D. on 03/01/2017 at 14:39 Approved by: Gilmar Chavez M.D. on 03/01/2017 at 14:45 Other Diagnostics PROCEDURE: US ABDOMEN INDICATIONS: ruq pain radiating to back, fever TECHNIQUE: Real-time scanning was performed of the abdominal and retroperitoneal organs, with image documentation. COMPARISON: None. FINDINGS: Liver length: 19.06 cm Gallbladder Wall Thickness: 2.70 mm CBD: 6.60 mm Spleen length: 14.77 cm Right kidney length: 12.66 cm Left kidney length: 13.29 cm Aorta(Proximal): 1.86 cm Aorta(Mid): 1.53 cm Aorta(Distal): 1.46 cm RCIA: 9.10 mm LCIA: 8.70 mm Liver: Liver is diffusely increased in echogenicity. No focal hepatic abnormalities identified. Normal hepatic size. Gallbladder: Multiple gallstones present. No gallbladder wall thickening or pericholecystic fluid. Negative sonographic Smith sign. Biliary ducts: Intrahepatic bile ducts are non-dilated. Extrahepatic bile duct caliber is normal. Normal is 6-7 mm or less in diameter, or 10 mm or less post-cholecystectomy. Pancreas: Visualized portions of the pancreas are sonographically normal. Spleen: Spleen is enlarged in size and homogeneous in echotexture. Kidneys: Kidneys are normal in size and echotexture. No hydronephrosis or nephrolithiasis. No solid masses. Aorta: Visualized aorta is normal in caliber at less than 3 cm. Iliacs: Proximal common iliac arteries are normal in caliber at less than 2.5 cm. IVC: Intrahepatic inferior vena cava is patent. Miscellaneous: No free abdominal fluid. IMPRESSION: 1. Increased hepatic echogenicity noted likely related to fatty infiltration of the liver but other sources of hepatocellular disease cannot be excluded. Recommend clinical correlation. 2. Cholelithiasis without evidence for cholecystitis. 3. Mild sonographic splenomegaly. Brief History HPI obtained on 02/28 26-year-old female with GERD, cold sore on chronic anti-viral tx, recently gave , not on breast-feeding presented with acute onset of back pain around midnight last night. Patient had acute onset severe right upper quadrant pain about a week, which resolved with Tylenol and ibuprofen. Pain traveled to back at that time, lasted for 4hours. Last night, pain was similar to previous episodes, but only on her back. Patient took Tylenol and ibuprofen again however pain persisted, decided to come to the hospital. Patient denied having similar episodes prior to a week ago episode. ROS: no fever, chills, sick contact, travel, chest pain, cough, sputum, SOB, ED vitals were stable, afebrile. labs showed elevated lipase with normal bilirubin, leukocytosis. abd US, MRCP ordered. consulted per ED provider. During the interview, pt denied any abdominal pain, n, v. feels hungry. Hospital Course 26-year-old female with GERD, cold sore on chronic anti-viral tx, recently gave , not on breast-feeding presented with acute onset of back pain around midnight last night. Hx suggested also recently episode of biliary colic. labs suggestive of acute pancreatitis. Acute dx RUQ pain, radiating to back, pt was admitted with impression of acute pancreatitis given elevated lipase, biliary colic. Patient was started on [id number]. Pain was controlled with morphine. Abd US showed cholelithiasis, pt underwent Lap cholecystectomy by on 02/28, intra-op findings suggested multiple small biliary stones. Patient tolerated surgery well. After surgery, lab trends was not improved for 1day, persistently high lipase and LFT. MRCP showed small distal CBD stones. however, it rapidly resolved on following day, essentially normalized, likely suggested that stones were passed. pt tolerated diet well with minimal sx. No further intervention such as ERCP pursued. discussed the case with , recommended follow up with him in GI clinic. Chronic dx GERD, continued ranitidine hx of herpes labialis on chronic anti-viral suppressive tx, continue acyclovir in house. Exam Vital Signs (Last) Date Time Temp Pulse Resp B/P Pulse Ox O2 Delivery O2 Flow Rate FiO2 03/02/17 10:50 36.9 70 18 118/79 97 Room Air 02/28/17 16:30 7 Exam pt was examined on the day of d/c Test 02/28/17 03:20 02/28/17 03:30 02/28/17 18:20 03/01/17 06:00 Hold [place] Top Tube Received (Received) Urine Color Yellow (YELLOW) Urine Appearance Cloudy (CLEAR,HAZY) Urine pH 7.0 (5.0-8.0) Urine Specific Velpen 1.025 (1.003-1.035) Urine Protein Negativemg/dL (NEG,TRACE) Urine Glucose (UA) Negativemg/dL (NEGATIVE) Urine Ketones Negativemg/dL (NEGATIVE) Urine Occult Blood Negative (NEGATIVE) Urine Nitrite Negative (NEGATIVE) Urine Bilirubin Negative (NEGATIVE) Urine Urobilinogen 1.0mg/dL (NORMAL) Urine Leukocyte Esterase Negative (NEGATIVE) Urine RBC 0-2/hpf (0-2) Urine WBC 6-10/hpf (0-5) Urine Epithelial Cells Many/hpf (NONE-MOD) Urine Crystals None seen (NONE SEEN) Urine Bacteria Moderate/hpf (NONE-FEW) Urine Hyaline Casts None/lpf (NONE) Urine Granular Casts None seen (NONE SEEN) Urine Waxy Casts None seen (NONE SEEN) Urine Red Blood Cell Casts None seen (NONE SEEN) Urine White Blood Cell Casts None seen (NONE SEEN) Urine Mucus Present (None Seen) Urine Trichomonas None seen (NONE SEEN) Urine Yeast None (NONE SEEN) Urinalysis Comment None Urine Culture Reflexed Indicated Direct Bilirubin 0.3mg/dL (0.0-0.3) Phosphorus Level 3.0mg/dL (2.5-4.9) Magnesium Level 1.8mg/dL (1.6-2.6) Test 03/02/17 06:05 White Blood Count 6.9th/mm3 (3.8-10.1) Red Blood Count 3.64mil/mm3 (3.90-5.20) Hemoglobin 10.6g/dL (12.0-15.6) Hematocrit 33.1% (35.0-46.0) Mean Corpuscular Volume 90.9fL (81-100) Mean Corpuscular Hemoglobin 29.1pg (27.0-35.0) Mean Corpuscular Hemoglobin Concent 32.0% (32.0-37.0) Red Cell Distribution Width 13.1% (12.3-15.4) Platelet Count 197bil/L (150-400) Neutrophils (%) (Auto) 51.6% (40-74) Lymphocytes (%) (Auto) 37.2% (14-46) Monocytes (%) (Auto) 6.5% (4-12) Eosinophils (%) (Auto) 4.5% (0-5) Basophils (%) (Auto) 0.1% (0-3) Sodium Level 141mEq/L (134-144) Potassium Level 3.8mEq/L (3.5-5.2) Chloride Level 108mEq/L (97-108) Carbon Dioxide Level 21mmol/L (18-29) Blood Urea Nitrogen 6mg/dL (6-20) Creatinine 0.50mg/dL (0.57-1.00) Estimat Glomerular Filtration Rate 214mL/min (>59) Glucose Level 96mg/dL (60-99) Calcium Level 7.7mg/dL (8.5-10.1) Total Bilirubin 0.2mg/dL (0.0-1.2) Aspartate Amino Transf (AST/SGOT) 30U/L (0-50) Alanine Aminotransferase (ALT/SGPT) 37U/L (0-32) Alkaline Phosphatase 93U/L (25-150) Total Protein 5.3g/dL (6.4-8.4) Albumin 3.1g/dL (3.4-5.0) Amylase Level 74U/L (28-100) Lipase 51U/L (13-60) Discharge Medications Discharge Medications Acyclovir (Acyclovir) 400 Mg Tablet 400 MG PO DAILY (Reported) Ranitidine (Ranitidine) 75 Mg Tablet 75 MG PO DAILY (Reported) As needed oxyCODONE-Acetaminophen 5-325 mg (oxyCODONE-Acetaminophen 5-325 mg) 1 Each Tablet 1 TAB PO Q4H PRN PRN For Pain Prescribed by: CHERELLE COLLIER MD Followup Plan Disposition: home Follow-up plan Follow up in the surgery clinic in the next 2-4 weeks. Call at any time with questions or concerns. Discharge Diet: No restrictions Discharge Activity: No restrictions Patient Instructions You were hospitalized because of abdominal pain, due to inflamed gallbladder and biliary stones. You were treated surgically. Your gallbladder was removed. Likely the you had small stones in her biliary duct which blocked your pancreas and caused inflammation which was all resolved at the time of discharge. Please follow-up with new primary doctor, we will arrange appointment with primary doctor at [place]. You will also recommended to follow-up with GI doctor for follow up in 2-4weeks. Follow-up Provider: Uriel Alejandro MD Follow-up with PCP in: 2 weeks Provider: [facility] Residency Clinic Follow-up in: 2 weeks Time spent 65min Cherelle Collier MD Mar 02, 2017 13:15
--- NOTE | 2017-03-02 13:58 | NUR ---
Social Work: Discharge D: EMR reviewed. Pt is on day 2 of hospitalization. Pt discussed in multidisciplinary rounds - per MD, pt is medically stable for discharge home today - no SW needs identified - no MD orders received. SW discussed pt's capacity for self-care after discharge, no concerns identified. A: Pt who is independent at baseline, currently capable of self care. P: Pt will discharge home via POV today. No discharge planning needs identified. No MD orders received. PACHECO Atwood
--- NOTE | 2017-03-02 14:40 | NUR ---
Discharge To home via private vehicle with sig other at 14:30. Declined wheelchair, steady ambulation to door with SBA. Pt and SO express understanding of all carenotes and discharge instructions, including followup, incision care and medications. Rx given. IV discontinued intact. All belongings sent with pt.
== END 2017-03-02 14:34 | disposition home or self-care (01) ==
LOC: SED 02:22 → OSC 08:14
PROVIDERS: ADMIT Internal Medicine; ATTEND Internal Medicine
DX: K80.64 Calculus of gallbladder and bile duct with chronic cholecystitis without obstruction (principal); K85.10 Biliary acute pancreatitis without necrosis or infection; K21.9 Gastro-esophageal reflux disease without esophagitis; B00.1 Herpesviral vesicular dermatitis; Z79.899 Other long term (current) drug therapy
CPT/HCPCS: 36415; 47563; 74181; 74300; 76700; 80053; 80076; 81000; 81025; 82150; 83690; 83735; 84100; 85025; 87086; 87088; 96361; 96374; 99285; G0378; J0690; J1885; J2250; J2270; J2405; J2704; J2710; J2765; J3010; J7030; J7120; Q9967

== ENCOUNTER → 2017-03-05 | Day surgery (SDC) | payer OTHER ==
[~2017-03-05] VITALS: Ht 170.2 cm; Wt 149.7 kg
[~2017-03-05] MED LIST: ACYC400T2 PO; Lactated Ringer's 1,000 ML IV ONE; Lactated Ringer's 1,000 ML IV SCH; MetoCLOpramide 5 mg/mL 2 mL Inj IVPUSH PRN; OXYC1TAB24 PO; Ondansetron 2 mg/mL 2 mL Inj IVPUSH PRN; RANI-426 PO
--- NOTE | 2017-03-05 12:25 | PCM.HPANE ---
Patient Data Surgeon Admitting Provider: Attending Provider:Uriel Alejandro MD Primary Care Physician:Marlin Torres MD Other Provider:Lorrie Hernandez Anesthesia Reason for Visit Common Bile Duct Stone Ht/WT & BMI Body Mass Index Allergies Uncoded Allergies: STEROIDS (Allergy, Intermediate, HIVES, 02/28/17) Past Anesthesia History Anesthesia History: Denies:: Abnormal Airway, Anesthesia Reactions, Difficult Intubation Diabetes History Hx Diabetes?: No MRSA MRSA: No Medications Hypertension Medication: No Home Meds Incl Beta Saige: No Active Scripts oxyCODONE-Acetaminophen 5-325 mg 1 Each Tablet1 Tab PO Q4H PRN For Pain #10 TABLET Ref 0 Prov:Cherelle Mooney MD 03/02/17 Reported Medications Acyclovir 400 Mg [id number] Mg PO DAILY Ref 0 02/28/17 Ranitidine 75 Mg [id number] Mg PO DAILY Ref 0 02/28/17 Discontinued Scripts oxyCODONE-Acetaminophen 5-325 mg 1 Each Tablet1 Tab PO Q4H PRN For Pain #10 TABLET Ref 0 Prov:Cherelle Mooney MD 03/02/17 History History of ENT Problems?: No HEENT History: Denies:: Abnormal Airway Cataracts Difficult Intubation Dysphagia Glaucoma Hearing Problem Sinus Problem TMJ Denture Type: None Teeth Condition: Within Normal Limits Hx of Heart Problems?: No Cardiovascular History: Denies:: AICD Abdominal Aortic Aneurism Atrial Fibrillation Cardiac Surgery Chest Pain Congestive Heart Failure Coronary Artery Disease Edema Heart Murmur Hypertension Irregular Heartbeat Pacemaker Peripheral Vascular Rheumatic Fever Thrombophlebitis Valvular Heart Disease Hx of Respiratory Problem?: No Respiratory History: Denies:: Asthma COPD Chest Surgery Cough Dyspnea Emphysema Hemoptysis Oxygen Administration Pneumonia Pulmonary Embolism Tuberculosis Use of C-PAP Machine Use of Inhalers / NEBS Hx Neurologic Problems?: No Neurological History: Denies:: Alzheimer's Disease CVA Dementia Dizziness Headaches Multiple Sclerosis Parkinson's Disease Peripheral Neuropathy Seizures TIA Hx of GI Problems?: Yes Hx of Problems?: No HX of Peritoneal Dialysis: No Female Hx: Denies:: Currently (GAVE 1 MONTH AGO) Endometriosis Pelvic Inflammatory Problems with Breasts? Hx Musculoskeletal Problems?: No Hx of Psycho/Social Problems?: No Hx Surgeries?: Yes (TONSILLECTOMY) Hx Any Other Health Problems?: No Other History: Denies:: Hospitalization History Blood Transfusions: Denies:: Blood Transfusions Hx Diabetes: No Hx Alcohol Use: NoHx Substance Use: No Smoking Status: Never Smoker Have You Smoked inLast 12 mo: No Stop/Bang Treated for Sleep Apnea?: No Do You Have a CPAP Machine?: No Risk Assessment Category Category 1A: Patient has history of documented sleep apnea, and HAS NOT received any narcotic, sedative or anesthesia administration during this stay. Category 1B: Patient has history of documented sleep apnea, and HAS received any narcotic , sedative or anesthesia administration during this stay Category 2: Patient has SUSPECTED Obstructive Sleep Apnea, and HAS received any narcotic , sedative or anesthesia administration during this stay. Category 3: Patient has SUSPECTED Obstructive Sleep Apnea and HAS NOT received narcotic, sedative or anesthesia administration during this stay. Category 4: Outpatient in Procedural Areas with known sleep apnea or who screen positive for High Risk via the STOP/BANG questionnaire. Exam Exam General Appearance: Alert, Oriented X3, Cooperative, No Acute Distress HEENT/AIRWAY: MP 2 Lungs: Clear to Auscultation, Normal Air Movement Heart: Exam Unremarkable, Regular Rate/Rhythm, No Murmurs/Rubs/Gallops Plan Impression Patient chart reviewed, patient interviewed and anesthestic plan with risks, benefits, and alternatives discussed, and informed consent obtained. NPO per Anesth. Guidelines: Yes ASA Physical Status: ASA2 Mod Systemic Disease Anesthetic Plan: MAC Bene/Risks/Altern/Consents: Yes HP Complete Prior to Induction: Yes Rashard Hernandez MD Mar 05, 2017 12:25
[2017-03-05 12:45] VITALS: BP 161/107; PULSE 66; RESP 14; O2SAT 98
== END | disposition home or self-care (01) ==
LOC: END 11:45
PROVIDERS: ATTEND Internal Medicine Gastroenterology
DX: K80.50 Calculus of bile duct without cholangitis or cholecystitis without obstruction (principal); Z53.8 Procedure and treatment not carried out for other reasons

== ENCOUNTER → 2017-03-12 | Day surgery (SDC) | payer OTHER ==
[~2017-03-12] VITALS: Ht 170.2 cm; Wt 152.0 kg
[2017-03-12] VITALS (9 sets, daily range): BP systolic 124–176; BP diastolic 74–109; PULSE 60–74; RESP 16–23; O2SAT 96–100
[~2017-03-12] MED LIST changes: +Atropine 0.4 mg/mL Inj IVPUSH PRN; +EPHEDrine Sulfate 50 mg/mL Inj IVPUSH PRN; +HYDROmorphone 1 mg/mL Inj IVPUSH PRN; +Labetalol 5 mg/mL 20 mL Inj IV PRN; +Lactated Ringer's 500 ML IV PRN; -MetoCLOpramide 5 mg/mL 2 mL Inj IVPUSH PRN; +Ondansetron 2 mg/mL 2 mL Inj ONE; +Phenylephrine 10,000 mCg/mL Inj IVPUSH PRN; +Phenylephrine/NS 100 mCg/mL 10 mL Syringe IVPUSH ONE; +Propofol 10,000 mCg/mL 20 mL Inj ONE; +Rocuronium 10 mg/mL 5 mL Inj ONE; +fentaNYL-PF 50 mCg/mL 2 mL Inj IVPUSH PRN; +fentaNYL-PF 50 mCg/mL 2 mL Inj ONE
--- NOTE | 2017-03-12 17:18 | PCM.HPANE ---
Patient Data Surgeon Admitting Provider: Attending Provider:Uriel Alejandro MD Primary Care Physician:Marlin Torres MD Other Provider:Lorrie Hernandez Anesthesia Reason for Visit Cbd Stone Ht/WT & BMI Height (Feet): 5 Height (Inches): 7 Weight (Kilograms): 152 Body Mass Index 52.00 Allergies Uncoded Allergies: STEROIDS (Allergy, Intermediate, HIVES, 02/28/17) Past Anesthesia History Anesthesia History: Denies:: Abnormal Airway, Anesthesia Reactions, Difficult Intubation, Fam Anesthesia Reaction, Fam Malignant Hypertherm, Malignant Hyperthermia Diabetes History Hx Diabetes?: No MRSA MRSA: No Medications Reported Medications Acyclovir 400 Mg [id number] Mg PO DAILY Ref 0 02/28/17 Ranitidine 75 Mg [id number] Mg PO DAILY Ref 0 02/28/17 Discontinued Scripts oxyCODONE-Acetaminophen 5-325 mg 1 Each Tablet1 Tab PO Q4H PRN For Pain #10 TABLET Ref 0 Prov:Cherelle Mooney MD 03/02/17 History History of ENT Problems?: No HEENT History: Denies:: Abnormal Airway Cataracts Difficult Intubation Dysphagia Hearing Problem Sinus Problem TMJ Denture Type: None Teeth Condition: Within Normal Limits Hx of Heart Problems?: No Cardiovascular History: Denies:: AICD Abdominal Aortic Aneurism Atrial Fibrillation Cardiac Surgery Chest Pain Congestive Heart Failure Coronary Artery Disease Edema Heart Murmur Hypertension Irregular Heartbeat Pacemaker Peripheral Vascular Rheumatic Fever Thrombophlebitis Valvular Heart Disease Hx of Respiratory Problem?: No Respiratory History: Denies:: Asthma COPD Chest Surgery Cough Dyspnea Emphysema Hemoptysis Oxygen Administration Pneumonia Pulmonary Embolism Tuberculosis Use of C-PAP Machine Use of Inhalers / NEBS Hx Neurologic Problems?: No Neurological History: Denies:: Alzheimer's Disease CVA Dementia Dizziness Headaches Multiple Sclerosis Parkinson's Disease Peripheral Neuropathy Seizures TIA Hx of GI Problems?: Yes Gastrointestinal History: Denies:: Cirrhosis Diverticulitis Gall Bladder Disease Gastroesphageal Reflux Gastrointestinal Bleeding Heartburn Hepatitis Hiatal Hernia Liver Disease Rectal Bleeding Hx of Problems?: No Genitourinary History: Denies:: HX of Hemodialysis Kidney Stones Urinary Tract Infection HX of Peritoneal Dialysis: No Female Hx: Denies:: Currently Endometriosis Pelvic Inflammatory Problems with Breasts? Skin History: Denies:: History Skin Disorders? Pressure Ulcers Hx Musculoskeletal Problems?: No Musculoskeletal History: Denies:: Back Injury Degenerative Joint Fibromyalgia Joint Replacement Musculoskeletal Trauma Myasthenia Gravis Osteoarthritis Rheumatoid Arthritis Systemic Lupus Hx of Psycho/Social Problems?: No Psycho Social History: Denies:: Anxiety Bipolar Disorder Hx Depression Suicide Attempt Hx Surgeries?: Yes (Tonsils, lap stephanie, oral surgery) Hx Any Other Health Problems?: No Other History: Denies:: Cancer Endocrine Disease Hospitalization Thyroid Disease History Blood Transfusions: Denies:: Accept Blood Products? Blood Transfuse Reaction Blood Transfusions Hx Diabetes: No Hx Alcohol Use: NoHx Substance Use: No Smoking Status: Never Smoker Have You Smoked inLast 12 mo: No Stop/Bang Treated for Sleep Apnea?: No Do You Have a CPAP Machine?: No S-Snoring: Do You Snore Loudly: Yes T-Tired: feel tired, fatigued: Yes O-Obsered: Observed not breath: Yes P-Blood Pressure: treated: No B- Body Mass Index > 35 kg/m2: Yes A- Age over 50: No N- Neck Large Circumference: No G- Gender Male: No PAKO Total Score: 4 Risk Assessment Category Category 1A: Patient has history of documented sleep apnea, and HAS NOT received any narcotic, sedative or anesthesia administration during this stay. Category 1B: Patient has history of documented sleep apnea, and HAS received any narcotic , sedative or anesthesia administration during this stay Category 2: Patient has SUSPECTED Obstructive Sleep Apnea, and HAS received any narcotic , sedative or anesthesia administration during this stay. Category 3: Patient has SUSPECTED Obstructive Sleep Apnea and HAS NOT received narcotic, sedative or anesthesia administration during this stay. Category 4: Outpatient in Procedural Areas with known sleep apnea or who screen positive for High Risk via the STOP/BANG questionnaire. Exam Exam Vital Signs Vital Signs Date Time Temp Pulse Resp B/P Pulse Ox O2 Delivery O2 Flow Rate FiO2 03/12/17 14:14 72 16 134/93 97 Room Air General Appearance: Alert, Oriented X3, Cooperative, No Acute Distress HEENT/AIRWAY: MP 2, Neck Movement (FORM), Mouth Opening (3 FBMO) Lungs: Clear to Auscultation, Normal Air Movement Heart: Exam Unremarkable, Regular Rate/Rhythm, No Murmurs/Rubs/Gallops Plan Impression Patient chart reviewed, patient interviewed and anesthestic plan with risks, benefits, and alternatives discussed, and informed consent obtained. NPO per Anesth. Guidelines: Yes ASA Physical Status: ASA2 Mod Systemic Disease Anesthetic Support Modalities: [place] Scope Anesthetic Plan: GA Bene/Risks/Altern/Consents: Yes HP Complete Prior to Induction: Yes Lalito Holt MD Mar 12, 2017 15:25
--- NOTE | 2017-03-12 17:19 | PCM.ANEP1 ---
Post Anesthesia PACU Phase 1 Assessment Vital Signs Vital Signs Date Time Temp Pulse Resp B/P Pulse Ox O2 Delivery O2 Flow Rate FiO2 03/12/17 17:05 36.5 62 18 139/91 97 Room Air 03/12/17 17:00 74 18 131/99 96 Room Air 03/12/17 16:50 36.3 60 21 124/77 96 Room Air 03/12/17 16:40 67 22 126/74 96 Room Air 03/12/17 16:35 63 23 127/81 100 Simple Mask 8 03/12/17 16:30 65 22 124/88 100 Simple Mask 8 03/12/17 16:28 36.4 65 19 133/86 100 Simple Mask 8 03/12/17 14:14 72 16 134/93 97 Room Air Anesthetic Administered: GA Level of Alertness: Awake, talking RAYMOND's with Equal Strength: Yes Pain: No Nausea or Vomiting: No CV Function & Hydration Stable: Yes Airway Device: n/a Oxygen Delivery: Room Air Lungs: Clear to Auscultation, Normal Air Movement Dermatome Level: Full Sensation PACU Phase 2 Assessment Complications: No Follow up Care: N/A Patient Instructions Provided: N/A Lalito Holt MD Mar 12, 2017 17:19
--- NOTE | 2017-03-12 20:11 | DRSVH ---
PROCEDURE: X-RAY E.R.C. BILIARY DUCTS ([id number]) INDICATIONS: PANCREATITIS, STONES TECHNIQUE: Fluoroscopic spot films were acquired by the gastroenterology service during ERCP procedu re. COMPARISON: [facility], MR, MR ABD MRCP, 03/01/2017, 12:26. [facility], CR, XR CHOLANGIOGRAM OPERATIVE, 02/28/2017, 14:20. FINDINGS: Exam is limited to 12 submitted images. Within these limits extrahepatic bile duct has bee n opacified which is normal caliber. There are several small faint filling defects involving the dis gabriel common bile duct which may be related to retained stones. Intrahepatic bile ducts are grossly no rmal. No extravasation of contrast media. Sweeping balloon catheter is noted. IMPRESSION: Several small faint intraluminal filling defects involving the distal common bile duct wh ich may be related to small retained stones versus gas bubbles. Correlate with real-time exam. Dictated by: Josef CHE Interpreted: Daniel Cunha MD on 03/12/2017 at 16:41 Approved by: Daniel Cunha M.D. on 03/12/2017 at 20:09
--- NOTE | 2017-03-12 21:54 | ENDO ---
[address] [address] ENDOSCOPY PROCEDURE PATIENT: ROSEMARIE GRIMALDO : 1990 MR#: [id number] ADMIT: 03/12/2017 JOB ID: [id number] DATE OF PROCEDURE: 03/12/2017 PROCEDURE: Endoscopic retrograde cholangiopancreatography. INDICATION: Gallstone pancreatitis. The patient is a 26-year-old woman who was admitted on February 28 for right upper quadrant pain and chemistries were consistent with gallstone pancreatitis. Patient subsequently underwent laparoscopic cholecystectomy with intraoperative cholangiogram which revealed multiple filling defects in the distal CBD. ANESTHESIA: Please see Dr. Lalito Holt's anesthesia note for details regarding general anesthesia. INSTRUMENT USED: [id number] ERCP scope. PROCEDURE DETAILS: After informed consent was obtained, the patient was brought into the GI suite, where she was placed under general anesthesia and then placed in the standard ERCP position. Initial runway model film was performed which was unremarkable. The side-viewing duodenal scope was then introduced through the bite block and advanced without difficulty to the second portion of the duodenum. The ampulla was identified and appeared to be erythematous, slightly ulcerated appearance, suggestive of a passed stone or stones. Using Olympus CleverCut tome, selected biliary cannulation was achieved with wire guidance. Initial cholangiogram demonstrated 8 mm common bile duct. No obvious filling defects were appreciated. The intrahepatic filled and appeared normal. Next, a moderate-sized sphincterotomy was performed, followed by balloon sweeps with an 8.5 mm inject from below balloon. Four sweeps were performed. No stones or sludge were appreciated on sweeps. The pancreatic duct was not injected or cannulated. IMPRESSION: Endoscopic retrograde cholangiopancreatography status post sphincterotomy with balloon sweep. RECOMMENDATIONS: 1. Avoid NSAIDs and anticoagulants. 2. Follow up in GI clinic as needed. 3. Follow up with primary care provider. COMPLICATIONS: None. ESTIMATED BLOOD LOSS: Zero. MTDD
== END | disposition home or self-care (01) ==
LOC: END 00:30
PROVIDERS: ATTEND Internal Medicine Gastroenterology
DX: K85.10 Biliary acute pancreatitis without necrosis or infection (principal)
CPT/HCPCS: 43262; 43277; 74328; J2370; J2405; J2704; J3010; Q9967